=== PATIENT | male | born 1990 | race Caucasian/White ===

== ENCOUNTER 2019-04-14 10:58 | Emergency (ER) | payer OTHER, SELFPAY ==
[~2019-04-14 10:58] MED LIST: Sterile Water Irrigation 250 ML BOT ONE
--- NOTE | 2019-04-14 11:34 | RAD ---
Exam: Right foot first toe 3 views History trauma. Pain. Injury FINDINGS: No displaced tuft fracture with associated soft tissue swelling. Punctate densities in the soft tissues may represent. IMPRESSION: Tuft fracture. Possible foreign body. Correlate clinically.
--- NOTE | 2019-04-14 11:58 | RAD ---
Exam: Right toe 3 views HISTORY: Pain. Trauma. FINDINGS: There is a tuft injury. Associated radiopaque foreign bodies. There is soft tissue swelling . IMPRESSION: Tuft injury. Possible radiopaque foreign bodies.
[2019-04-14] MEDS ORDERED: Lidocaine 1% 20 ML MDV ONE (12:06)
[2019-04-14] MEDS ORDERED: Adacel (T-DAP) 0.5 ML SYRINGE ONE (12:16)
[2019-04-14] MEDS ORDERED: Amoxicillin/Potassium Clav 875 MG TAB ONE (12:16)
== END 2019-04-14 12:59 | disposition home or self-care (01) ==
LOC: MADERS 10:58
DX: S92.421B Displaced fracture of distal phalanx of right great toe, initial encounter for open fracture (principal); S91.211A Laceration without foreign body of right great toe with damage to nail, initial encounter; S90.121A Contusion of right lesser toe(s) without damage to nail, initial encounter; Z23 Encounter for immunization; W20.8XXA Other cause of strike by thrown, projected or falling object, initial encounter
CPT/HCPCS: 12001; 90471; 90715; J2001

== ENCOUNTER 2020-06-13 18:05 | Emergency (ER) | payer BC, SELFPAY ==
[2020-06-14 21:27] LABS: SARS-CoV-2 MS2 Positive; SARS-CoV-2 N Gene Positive; SARS-CoV-2 S Gene Positive; SARS-CoV-2 by NAA DETECTED (NotDetected); SARS-CoV-2 orf1ab Positive
== END 2020-06-13 20:00 | disposition home or self-care (01) ==
LOC: MADERS 18:05
DX: U07.1 COVID-19 (principal); I10 Essential (primary) hypertension
CPT/HCPCS: 87635; 87804; 99283; U0003

== ENCOUNTER 2023-08-01 16:09 | Outpatient (CLI) | payer BC | END 2023-08-01 16:10 | disposition home or self-care (01) | LOC: MADRAD 16:09 | PROVIDERS: ATTEND Internal Medicine | DX: M25.512 Pain in left shoulder (principal) ==